=== PATIENT | male | born 1955 | race Caucasian/White ===

== ENCOUNTER 2017-01-08 05:35 | Day surgery (SDC) | payer OTHER ==
[2017-01-08] MEDS ORDERED: LIDOCAINE 1% 5 ML SDV ID PRN (06:12)
[2017-01-08] MEDS ORDERED: LR 1,000 ML IV ONE (06:12)
[2017-01-08] MEDS ORDERED: PROPOFOL 200 MG/20 ML VIAL ONE (07:07)
[2017-01-08] MEDS ORDERED: ROCURONIUM 100 MG/10 ML VIAL ONE (07:08)
[2017-01-08] MEDS ORDERED: METOCLOPRAMIDE 10 MG/2 ML VIAL ONE (07:08)
[2017-01-08] MEDS ORDERED: LIDOCAINE 2% 100 MG/5 ML SYR IVP ONE (07:08)
[2017-01-08] MEDS ORDERED: MIDAZOLAM 2 MG/2 ML VIAL ONE ×2 (07:08→07:26)
[2017-01-08] MEDS ORDERED: DEXAMETHASONE 4 MG/ML VIAL ONE ×2 (07:08)
[2017-01-08] MEDS ORDERED: BUPIVACAINE/EPI 0.5% 30 ML SDV ONE (07:13)
[2017-01-08] MEDS ORDERED: CEFAZOLIN 2 GM/DEXTROSE/100 ML BAG IV ONE (07:23)
[2017-01-08] MEDS ORDERED: ceFAZolin 2 GM/DEXTROSE 100 ML IV ONE (07:30)
[2017-01-08] MEDS ORDERED: ROPIVACAINE HCL 20 MG/10 ML INJ EP ONE (08:17)
[2017-01-08] MEDS ORDERED: PHENYLEPHRINE 10 MG/ML SDV ONE (08:22)
[2017-01-08] MEDS ORDERED: SUGAMMADEX SODIUM 200 MG/2 ML VIAL IVP ONE (09:38)
[2017-01-08] MEDS ORDERED: SKIN ADHESIVE (DERMABOND) 1 EACH TP ONE (10:30)
[2017-01-08 11:25] VITALS: BP 131/85; RESP 13; O2SAT 94
[2017-01-08] MEDS ORDERED: ONDANSETRON 4 MG/2 ML VIAL ONE ×2 (12:37→12:57)
--- NOTE | 2017-01-08 13:24 | GOP ---
DATE OF OPERATION: SURGEON: Adeline Yap MD DIRECTOR OF PROVIDER RELATIONS: No Brown, PAC, medically required for positioning of the arm during open total raphael ulder and careful retraction of vital neurovascular structures. PREOPERATIVE DIAGNOSIS: 1. Left shoulder osteoarthritis. 2. Biceps pathology and tear. POSTOPERATIVE DIAGNOSIS: 1. Left shoulder osteoarthritis. 2. Biceps pathology and tear. PROCEDURE PERFORMED: 1. Open total shoulder replacement, left shoulder. 2. Biceps tenodesis to the pectoralis tendon. FINDINGS: ESTIMATED BLOOD LOSS: 300 cc blood loss. INDICATIONS: A 61-year-old male with left shoulder pain. 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 Left shoulder pain. Clinical radiographic CT scan reviewed shows intact rotator cuff and en d-stage osteoarthritis of the glenoid. He had some posteroinferior subcortical insufficiency most l ikely representing cystic changes of the glenoid. We reviewed metal sensitivities. He has evidence of metal hardware in his left wrist, and he did well with that. His MRSA scan was negative. He townsend d a cardiac clearance with Dr. Collins at the [facility]. DESCRIPTION OF PROCEDURE: The patient was identified in the preoperative holding area. Consent, la terality, and preoperative antibiotics were confirmed delivered, and all questions were answered. H is was available at the bedside for questions and answers. Scripts were given. Left shoulder was identified on all consents and H and P, as well as by the patient. The patient was brought into the operating room. Beach chair position. An interscalene block by An esthesia. General anesthesia. 30 degree head of bed. All extremities well padded. Left upper ext remity was prepped and draped in a sterile fashion. Ioban diaper draping. Standard deltopectoral interval was developed. Cephalic vein was taken laterally. Subdeltoid adhes ions were freed up. Conjoined tendon identified. Clavipectoral fascia was taken. A Kobel retracto r, 2 medium blades were placed underneath the deltoid and the conjoined tendon. The subscapularis w as identified. Lesser tuberosity was identified. The 3 sisters were identified. The biceps was id entified, tenotomized, and [id number] stitch to the pec tendon. The lateral border pec tendon was released by 1-1/2 cm. The rotator interval was taken. The subscapularis and lesser tuberosity were identified. A curved osteotome was used to do a wafer of lesser tuberosity osteotomy. A Yusuf -Dean stitch was placed to retrieve the subscapularis. A capsulectomy was performed. We freed up the adhesions around the subscapularis. We did a labrectomy. With finger dissection, we felt the a xillary nerve and did an inferior capsulotomy. With progressive external rotation of the humerus, w e debrided the inferior osteophytes. Did a freehand cut of the humeral head at aversion of 130 degr ees. We placed a humeral head protector. We took the arm out onto the padded Dorena. We completed t he inferior capsulotomy as well as posterior capsulotomy with protection of the axillary nerve. We did a full labrectomy, debrided the remainder of the biceps. He was the retroverted about 15 degree s. We placed a freehanded guide pin in the center-center position of the glenoid. Then, we used a medium size Nautilus reamer. We had a Bankart retractor anteriorly, a pointed Hohmann at the 12 o'c lock position, and another pointed Hohmann at the posterior position, dislocating the humeral head p osteriorly. We were able to eyeball an anterior bias on the retroverted glenoid. We had about 75% of the glenoid with excellent bone stock. The posterior inferior position from approximately the 4 to 6 o'clock position was a little bit fibrous. We debrided the fibrous tissue to the subchondral b one and then placed 3 guide pin holes to support it with a cement mantle. We trialed this, had exce llent fit, and then placed the real implants with cement in the superior hole, the smiley face infer ior hole, with bone mulch in the central peg hole. The wound was copiously washed out with 500 cc o f warm normal saline. We progressed to dislocating the humeral head anteriorly for the humeral head preparation. We had t he canal reamers just about 5 mm from the bicipital groove in the center canal position. We broache d to about a 30-degree retroverted angle. We broached up to a 10, placed the real implant with the Arthrex suture technique with 2 drill holes near the subscapularis lesser tuberosity osteotomy in th e bicipital groove. We passed both these sutures before the implant was placed. We chose a 50 head after trialing. We had about 50% posterior shuck with a good bounce-back and stable external rotat ion to about 30 degrees. Arthrex lesser tuberosity technique for mattress double row configuration was performed with the arm in 10 degrees of external rotation neutral adduction. The wound was copi ously washed out with 500 cc of warm normal saline. 2-0 PDS for deep subcutaneous closure, 3-0 [place] cryl for superficial subcutaneous closure, Dermabond for skin, Mastisol Steri-Strips, and Mepilex ta pe waterproof dressing was applied. Sling applied. IMPLANTS USED: 1. A 50 mm Arthrex head [place] stem. 2. A medium pegged glenoid. 3. Subscapularis lesser tuberosity osteotomy with Arthrex specific closure double row configuration . COMPLICATIONS: None. TOTAL SURGICAL TIME: 2-1/2 hours. DISPOSITION: Extubated, awake to the PACU in stable condition. /[id number]/MODL
== END 2017-01-08 14:20 | disposition home health service (06) ==
LOC: UNDOADMOB 05:35 → F3N 05:35 → FSGY 05:35 → EDSTATUS 07:15 → FSGY 14:20
PROVIDERS: ATTEND Orthopaedic Surgery
PROC: 0LM20ZZ Reattachment of Left Shoulder Tendon, Open Approach (ICD-10-PCS; principal; 2017-01-08 07:33)
PROC: 0RRK0JZ Replacement of Left Shoulder Joint with Synthetic Substitute, Open Approach (ICD-10-PCS; principal; 2017-01-08 07:33)
DX: M19.012 Primary osteoarthritis, left shoulder (principal); M75.22 Bicipital tendinitis, left shoulder
CPT/HCPCS: C1713; J0171; J0690; J1100; J2001; J2250; J2370; J2405; J2704; J2765; J2795